=== PATIENT | female | born 1975 | race Asian ===

== ENCOUNTER 2025-08-02 11:45 | Inpatient (IN) | payer SELFPAY ==
[~2025-08-02] VITALS: Ht 160 cm; Wt 54.2 kg
[2025-08-02 12:09] LABS: MEAN PLATELET VOLUME 10.4 FL (7.4-10.4); RED CELL DISTRIBUTION WIDTH 13.8 % (11.5-14.5)
--- NOTE | 2025-08-02 12:14 | Physician Documentation ---
History of Present Illness ~ Chief Complaint: Chest Pain Stated Complaint: CP Time Seen by MD: 11:58 HPI 50-year-old female who presents to the emergency department because this morning she was on the treadmill for approximately 20 minutes and began experiencing chest tightness with shortness a breath without diaphoresis. This discomfort is consistent with prior history and episodes of exertion. Patient has seen cardiology in the past. Denies taking any medication she does not smoke. Most recent episode prior to today is with Thursday when she was not on a long hike and again experienced the same discomfort. Over the weekend the pain has subsided yet to reoccurring this morning. Prior to this the last significant episode was February when she was on a 10 day trip in . Presently she was without shortness of breath, no diaphoresis and pain is described as chest tightness. She is not on blood thinners. Last stress test 2022. 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 Medication Reconciliation Allergies: Coded Allergies: No Known Allergies (Unverified , 08/02/25) Review of Systems All Other Systems at this time: Reviewed and Negative Respiratory: Reports: see HPI Cardiovascular: Reports: see HPI Physical Exam Vital Signs: RN Vital Signs have been reviewed: Yes, Temperature: 97.6, Source: Oral, Pulse Oximetry: 98, Weight: 54.200 Oxygen Flow Rate: 0 General Appearance: alert, WD/WN, mild distress EENT: normal ENT inspection Neck: normal inspection Respiratory: lungs clear, normal breath sounds Chest: no accessory muscle use Cardiovascular: normal peripheral pulses, regular rate, rhythm Edema: 1+ Lower Extremity (R), 1+ Lower Extremity (L) Gastrointestinal: normal palpation Extremities: normal inspection Neurologic: oriented x4 Psychiatric: normal mood/affect Skin: normal color, warm/dry Progress Results/Orders Results/Orders Orders - THERESE CHEN Page Hospitalist (08/02/25 12:42) Fill Out Med Reconciliation (08/02/25 12:42) Heart Healthy Diet (08/02/25 Dinner) Completed Orders - THERESE CHEN Aspirin 81mg Chew Tablet (Aspirin 81mg C (08/02/25 12:30) Medications Received in ER Medications (Trade) Dose Ordered Sig/Dania Route PRN Reason Start Time Stop Time Status Last Admin Dose Admin (aspirin 81MG chew tablet) 81 mg ONCE ONCE PO 08/02/25 12:30 08/02/25 12:31 DC 08/02/25 12:40 81 MG Vital Signs 08/02/25 11:53 Temp 97.6 Pulse Ox 98 O2 Flow Rate 0 Laboratory Tests Test 08/02/25 11:58 White Blood Count 6.5 Red Blood Count 4.37 Hemoglobin 12.2 Hematocrit 37.4 Mean Corpuscular Volume 85.5 Mean Corpuscular Hemoglobin 28.0 Mean Corpuscular Hemoglobin Concent 32.7 L Red Cell Distribution Width 13.8 Platelet Count 168 Mean Platelet Volume 10.4 Neutrophils (%) (Auto) 66.6 Lymphocytes (%) (Auto) 24.7 Monocytes (%) (Auto) 6.9 Eosinophils (%) (Auto) 1.3 Basophils (%) (Auto) 0.5 Neutrophils # (Auto) 4.3 Lymphocytes # (Auto) 1.6 Monocytes # (Auto) 0.4 Eosinophils # (Auto) 0.1 Basophils # (Auto) 0.0 CBC Comment Sodium Level 138 Potassium Level 3.6 Chloride Level 104 Carbon Dioxide Level 29.6 Anion Gap 4 L Blood Urea Nitrogen 14 Creatinine 0.47 Estimated GFR/1.73 m2 > 90 BUN/Creatinine Ratio 29.8 H Glucose Level 89 Calcium Level 8.6 Troponin I High Sensitivity 4 Pro-B-Type Natriuretic Peptide 31 Albumin 3.6 Chemistry Comments Medical Decision Making Additional information obtaine: old records Findings 50-year-old female who presents to the emergency department with chest tightness associated with exertion. Heart score four. Initial EKG upon arrival is without ST elevation. Patient's direct bedded and pending labs, chest x-ray imaging and serial troponins. Initial troponin within normal limits. Patient is provided aspirin. We will hold on nitrites due to blood pressure being 102 systolic. Patient's discomfort and self resolving. Will consult for consideration to admit for chest pain with exertion. Chest x-ray imaging without obvious infiltrate effusion and/or pneumothoraces. Otherwise labs were all reassuring. Heart Score: 4 Differential Dx:Considerations: Include: angina, chest wall pain, esophageal reflux/spasm, myocardial infarction, pericarditis, pleuritis, pneumothorax, pulmonary embolus Departure Disposition: ADMITTED INPATIENT Admitted to Inpatient Unit: to hospitalist Impression: Primary Impression: Chest pain on exertion Referrals: NO PRIMARY CARE PROVIDER (PCP) Signature Scribe Signature: . Attestation: . THERESE CHEN PAC Aug 02, 2025 12:14
--- NOTE | 2025-08-02 12:27 | RADIOLOGY REPORT ---
EXAM: DI CHEST,SINGLE VIEW HISTORY: CP COMPARISON: None TECHNIQUE: Portable upright AP view of the chest was performed. FINDINGS: No pneumothorax, consolidative infiltrates, or pulmonary edema. The heart is not enlarged. IMPRESSION: No acute intrathoracic process.
[2025-08-02 12:30] LABS: CREATININE 0.47 MG/DL (0.40-0.90); PRO BRAIN NATRIURETIC PEPTIDE 31 PG/ML (0-125); TOTAL CARBON DIOXIDE 29.6 MMOL/L (24-32); eCRCL 118 ML/MIN; eGFR > 90 ML/MIN
--- NOTE | 2025-08-02 13:42 | ELECTROCARDIOGRAPH REPORT ---
[facility] Test Date: 2025-08-02 Test Time: 11:51:44 Pat Name: TONIO WARREN Department: EMERGENCY ROOM Room: [place] [address] Gender: F [employer] Laborer: brigida : 1975 Requested By: TERA FLORES Order Number: [id number] Reading MD: Dr. ALBANIA Bess Measurements Intervals [place] Rate: 81 P: 82 AK: 209 QRS: 80 QRSD: 84 T: 70 QT: 359 QTc: 417 Interpretive Statements Sinus rhythm Borderline prolonged AK interval LAE, consider biatrial enlargement RSR' in V1 or V2, probably normal variant Inferior infarct, acute (LCx) Borderline ST elevation, anterior leads Baseline wander in lead(s) V2,V5,V6 Electronically Signed On 08-03-2025 16:52:[address] ALBANIA Bess Please click the below link to view image of tracing.
[2025-08-02] MEDS ORDERED: magnesium sulf-water 2g/50mL 50 ML IV PRN (15:25)
[2025-08-02] MEDS ORDERED: ondansetron/PF 4mg/2ml inj IV PRN (15:25)
[2025-08-02] MEDS ORDERED: magnesium Cl slow-release 64mg tablet PO PRN (15:25)
[2025-08-02] MEDS ORDERED: magnesium hydroxide 30ml (MOM) UD suspension PO PRN (15:25)
[2025-08-02] MEDS ORDERED: magnesium sulf-water 4G/100mL 100 ML IV PRN (15:25)
[2025-08-02] MEDS ORDERED: potassium Cl 40MEQ/1/2NS 520ml 520 ML IV PRN (15:25)
[2025-08-02] MEDS ORDERED: ondansetron 4mg rapidly disintigrating tab PO PRN (15:25)
[2025-08-02] MEDS ORDERED: potassium Cl 20 mEq SR tablet PO PRN ×2 (15:25)
[2025-08-02] MEDS ORDERED: aspirin 81mg, enteric-coated 1 TAB TABLET.DR PO SCH (15:45)
[2025-08-02] MEDS: PERFLUTREN PROTEIN-A MICROSPHR (Optison) 0.22 MG/ML 3ML VIAL IV ONE (15:50)
--- NOTE | 2025-08-02 15:55 | HISTORY AND PHYSICAL-Residence ---
History & Physical Providers to CC Resident Creating Document: LEIGH ANN PLUMMER, RES ~ History of Present Illness Reason for Admit\Complaint: Chest pain History of Present Illness 50-year-old female with no significant past medical history presented to the ED with complaints of left-sided chest pain. The patient reports intermittent chest pain for the past few months, with a noticeable episode during hiking about 2 months ago. Three days ago, while performing treadmill exercise with minimal exertion, she developed gradual-onset left-sided stabbing chest pain, rated 6/10- now its 3/10, radiating to both jaws. Pain is more pronounced at night and with exertion. Associated symptoms include lightheadedness, headache, shortness of breath and fatigue. She denies palpitations, diaphoresis, syncope, nausea, vomiting, orthopnea, paroxysmal nocturnal dyspnea, leg swelling, recent fever, cough, or hemoptysis. Past history notable for long-standing joint pains, anxiety, and elevated LDL, but she is not on any medications. She had a normal Lexiscan stress test in 2022. No prior history of CAD, hypertension, diabetes, or family history of premature cardiac disease. 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 Past Surgical History Surgical History Comment No past surgical history Past Social History Social History Comment Primary care physician- - Aydin Lives Alone in Home, she is a traveller Occupation - Dietitian Nonsmoker, occasional alcohol user, denies any use of drugs and marijuana Family uivsljw-ywxhoo-ziugyvxpvo cancer, uncle-heart attacks ROS All Other Systems: Reviewed and Negative Constitutional: Reports: no symptoms reported Eyes: Reports: no symptoms reported ENT: Reports: no symptoms reported Respiratory: Reports: see HPI, SOB with exertion Cardiovascular: Reports: chest pain, lightheadedness Gastrointestinal: Reports: nausea Genitourinary: Reports: no symptoms reported Female Genitalia: Reports: no reported symptoms Neurological: Reports: no symptoms reported Musculoskeletal: Reports: no symptoms reported Integumentary: Reports: no symptoms reported Allergic/Immunologic: Reports: no symptoms reported Endocrine: Reports: no symptoms reported Psychiatric: Reports: anxiety Exam Vitals: Vital Signs Date Time Temp Pulse Resp B/P (MAP) Pulse Ox O2 Delivery O2 Flow Rate FiO2 08/02/25 14:22 100 Room Air* 0 21 08/02/25 14:15 89 17 107/69 (82) 08/02/25 11:53 97.6 General: Awake , alert, and oriented x4 HEENT: Atraumatic, normocephalic, EOMI, anicteric sclera ; pink conjunctiva Neck: Trachea midline. Supple, full range of motion, no JVD Cardiac: Regular rhythm, regular rate , 2/6 holosystolic murmur heard in the apex, left chest-mild tender on palpation Respiratory: Equal breath sounds bilaterally, no tachypnea, no wheezing ,rub or rales, Chest wall is symmetric and without deformity. Gastrointestinal: Abdomen symmetric, non-distended, soft, non-tender, normal bowel sounds x4 quadrant, normoactive, no hepatosplenomegaly Neurological: Mental status exam: alert and consciousness, orientation, memory, speech - Cranial nerve test: Cranial nerves 2-12 intact - Motor system: Normal Nutrition, normal tone, Power 5/5, no involuntary movements - Sensory system: Intact - Reflex testing: Biceps, triceps and knee reflexes 2+ - Cerebellar: Normal Skin: Warm and dry Extremities : No Edema, peripheral pulses felt, No deformities Psychiatric:Appropriate mood and affect,No hallucinations or suicidal ideation Diagnostic Data Last Recorded Lab Results: 08/02/25 1158 08/02/25 1158 Advance Care Planning Advanced Care plannin - 30 Minutes Additional Plan 50 years old female with past medical history of hyperlipidemia, anxiety, peripheral neuropathy, cavernous malformations of temporal lobe currently evaluated for chest pain Atypical chest Likely 2/2 chronic fatigue syndrome Differential-unstable angina Patient has symptoms of chest tightness, fatigue, pain worse with activity which is not going with typical angina symptoms Patient reports having 6/10 chest tightness during night at rest and sometimes during morning while patient on minimum activity Vitals-stable with 100% oxygen saturation maintaining at room air EKG shows-sinus rhythm, prolonged NV interval-237, regular RR interval Troponins-negative, pro BNP-31 Started aspirin 81 mg, atorvastatin 40 mg, sublingual nitroglycerin p.r.n., morphine p.r.n. In view of soft blood pressure readings we are currently not considering beta- catrachito Follow up with lipid panel, TSH, HGB A1c, Echocardiogram Continue monitoring the patient in telemetry Patient will be on NPO from midnight and possible Lexiscan in a.m. Hyperlipidemia Patient mentioned history of hyperlipidemia, per patient her last LDL was 160 Follow up with lipid panel, patient is currently on atorvastatin 40 mg p.o. daily first-degree AV block Patient mentioned having doctors with first-degree AV block, EKG-shows prolonged NV interval Continue monitoring patient in PCU with telemetry, avoid NV elongating drugs like beta catrachito, calcium channel catrachito Advance care: I spent a total of 16 minutes reviewing various resuscitative measures/ACP with patient. The patient decided to be full Code Status: Full DVT prophylaxis: SCDs Analgesia/Sedation: Morphine Nutrition: Heart healthy PT: Ordered Prognosis: Guarded Disposition: Continue monitoring the patient in PCU with telemetry, NPO after midnight-Shruthi in a.m. Leigh Ann Plummer PGY1-Internal Medicine Resident This Note has been reviewed by Pgy 2 and Pgy 3 Date of Service: Aug 02, 2025 Billing Provider: LAYO LANGLEY MD Common Visit Codes: 38925-EMQGEEM INP/OBS CARE (HIGH) Secondary Visit Codes: 86847-CRVQEUDF CARE PLAN 30 MINUTES LEIGH ANN PLUMMER, RES Aug 02, 2025 15:55 LAYO LANGLEY MD Aug 04, 2025 06:38
[2025-08-02 16:00] VITALS: BP 117/84; PULSE 83; RESP 14; TEMP 98.2; O2SAT 100
[2025-08-02 16:24] LABS: CHOL/HDL RATIO 3.8 (0.00-4.99); LDL CHOLESTEROL 149 MG/DL (50-100)
--- NOTE | 2025-08-02 17:31 | CARDIOLOGY REPORT ---
APPROVED REPORT EXAM: Comprehensive 2D, Doppler, and color-flow Echocardiogram. Patient Location: [facility] Blood Pressure: 107/69 mmHg Heart Rate: 78 bpm Indications Chest Pain Coronary Artery Disease SAUSAGE LINKER: Rob Mendoza MD ([place], [place]) No Previous ECHO at [facility] 2D Dimensions LA Diam 2.2 cm IVSd 0.7 (0.7-1.1cm) LVDd 3.4 cm PWd 0.7 (0.7-1.1cm) IVSs 0.8 (0.8-1.2cm) LVDs 2.0 (2.5-4.0cm) PWs 1.0 (0.8-1.2cm) LVOT Diameter 1.81 (1.8-2.4cm) LVEF(%) 73.7 (>50%) Ao Asc Diam. 2.14 cm IVC 16.25 mm FS (%) 41.7 % SV 35.9 ml CO 2.9 L/min M-Mode Dimensions Left Atrium(MM) 2.71 (2.5-4.0cm) Aortic Root 2.47 (2.2-3.7cm) Aortic Cusp Exc 1.76 (1.5-2.0cm) MV EPSS 0.8 (<0.5cm) Aortic Valve AoV Peak José. 143.4 cm/s AoV VTI 20.3 cm AO Peak GR. 8.2 mmHg AO Mean GR. 4 mmHg LVOT VTI 17.09 cm LVOT Peak José. 95.4 cm/s JOSE LUIS(VTI)/BSA 2.17 cm2/m2 JOSE LUIS (VTI) 2.17 cm2 AV DI 0.84 % Mitral Valve MV E Velocity 90.4 cm/s MV Peak Gr. 4 mmHg MV DECEL TIME 188 ms MV A Velocity 62.3 cm/s MV PHT 52 ms E/A Ratio 1.5 MVA (PHT) 4.23 cm2 MV VMax 100.2 cm/s TDI Lateral E' P. V 17.15 cm/s Medial E' P. V 10.03 cm/s E/Lateral E' 5.3 E/Medial E' 9.0 Tricuspid Valve TR P. Velocity 203 cm/s RAP ESTIMATE 10 mmHg TR Peak Gr. 16 mmHg RVSP 26 mmHg LEFT VENTRICLE Normal LV size and wall thickness. Overall systolic function is normal. LVEF is 70-75%. RIGHT VENTRICLE RV is normal size and function. ATRIA The left atrium size is normal. AORTIC VALVE Trileaflet AV appears mildly sclerotic without stenosis. No insufficiency. MITRAL VALVE Mild mitral annular calcification without stenosis. Trace regurgitation. TRICUSPID VALVE The tricuspid valve is normal in structure with trace regurgitation. PULMONIC VALVE Pulmonic valve is grossly normal in structure without insufficiency. GREAT VESSELS The aortic root is normal in size. The ascending aorta is normal in size. The IVC is normal in size and collapses >50% with inspiration. PERICARDIUM Normal pericardium. No effusion. Other Information Study Quality: Adequate Conclusion Normal LV size and wall thickness. Overall systolic function is normal. LVEF is 70-75%. RV is normal size and function. The left atrium size is normal. Trileaflet AV appears mildly sclerotic without stenosis. No insufficiency. Mild mitral annular calcification without stenosis. Trace regurgitation. The tricuspid valve is normal in structure with trace regurgitation. Normal pericardium. No effusion.
[2025-08-02 18:00] VITALS: BP_SYST 110; BP_SYST 111; BP_DIAS 70; BP_DIAS 73; PULSE 83; PULSE 84; RESP 17; TEMP 98.2; O2SAT 98
[2025-08-02 18:01] VITALS: RESP 15; O2SAT 98
[2025-08-02] MEDS ORDERED: aminophylline 250mg/10ml inj. IV PRN (18:20)
[2025-08-02] MEDS ORDERED: metoprolol tartrate 1mg/ml inj IV PRN (18:20)
[2025-08-02] MEDS ORDERED: regadenoson 0.4mg/5ml syringe IV PRN (18:20)
[2025-08-02] MEDS: docusate sod 100mg capsule PO SCH (19:12)
[2025-08-02] MEDS: K and/or MAG REPLACEMENT MC SCH (19:12)
[2025-08-02 20:00] VITALS: BP_SYST 111; BP_SYST 114; BP_SYST 115; BP_DIAS 64; BP_DIAS 70; BP_DIAS 79; PULSE 66; PULSE 77; PULSE 80; RESP 17; O2SAT 98
[2025-08-02 22:00] VITALS: BP 111/70; PULSE 74; RESP 14; TEMP 98.1; O2SAT 96
[2025-08-02] MEDS: mag hydrox/Alum hydrox/simeth 30ml oral suspension PO PRN (22:10)
[2025-08-03 02:00] VITALS: BP 111/64; PULSE 66; RESP 13; TEMP 97.6; O2SAT 99
[2025-08-03 06:00] VITALS: BP_SYST 114; BP_SYST 99; BP_DIAS 61; BP_DIAS 71; PULSE 68; PULSE 70; RESP 13; TEMP 97.3; TEMP 97.6; O2SAT 94; O2SAT 98
[2025-08-03 06:34] LABS: MEAN PLATELET VOLUME 10.2 FL (7.4-10.4); RED CELL DISTRIBUTION WIDTH 13.7 % (11.5-14.5)
[2025-08-03 07:14] LABS: CREATININE 0.50 MG/DL (0.40-0.90); TOTAL CARBON DIOXIDE 28.8 MMOL/L (24-32); eCRCL 111 ML/MIN; eGFR > 90 ML/MIN
[2025-08-03 08:00] VITALS: BP_SYST 103; BP_SYST 104; BP_DIAS 55; BP_DIAS 67; BP_DIAS 69; PULSE 73; PULSE 78; PULSE 80; RESP 13; O2SAT 98
[2025-08-03] MEDS ORDERED: metoprolol tartrate 1mg/ml inj IV PRN (08:10)
[2025-08-03] MEDS ORDERED: aminophylline 250mg/10ml inj. IV PRN (08:10)
[2025-08-03] MEDS ORDERED: regadenoson 0.4mg/5ml syringe IV PRN (08:10)
[2025-08-03] MEDS: aspirin 81mg, enteric-coated 1 TAB TABLET.DR PO SCH (09:07)
[2025-08-03 11:00] VITALS: BP 103/55; PULSE 73; RESP 13; TEMP 97.9; O2SAT 99
[2025-08-03] MEDS ORDERED: NO HOME MEDS (11:58)
--- NOTE | 2025-08-03 21:20 | DISCHARGE SUMMARY-Residence ---
Discharge Summary Providers to CC Resident Creating Document: LEIGH ANN PLUMMER, RES ~ Discharge Summary Admission Diagnosis: Chest pain Hospital Course DATE OF ADMISSION: 08/02/2025 DATE OF DISCHARGE: 08/03/25 Discharge Diagnosis\Comment: Atypical chest pain with unknown etiology Differentials include chronic fatigue syndrome Operations\Procedures: None Consultants: None Complications: None Condition on DC: Stable Discharge Summary: History of present illness 50-year-old female with no significant past medical history presented to the ED with complaints of left-sided chest pain. The patient reports intermittent chest pain for the past few months, with a noticeable episode during hiking about 2 months ago. Three days ago, while performing treadmill exercise with minimal ex ertion, she developed gradual-onset left-sided stabbing chest pain, rated 6/10- now its 3/10, radiating to both jaws. Pain is more pronounced at night and with exertion. Associated symptoms include lightheadedness, headache, shortness of breath and fatigue. Hospital course The patient was admitted with left-sided chest pain that was more pronounced after physical activity and during periods of fatigue. Initial evaluation revealed normal troponin, Pro-BNP, and TSH levels, with an LDL of 149 mg/dL; echocardiogram was normal. Due to suspicion of angina, the patient was started on atorvastatin and aspirin; however, the pain patternassociated with fatigue and exercise, along with a history of muscle aches and constant discomfortmade unstable angina unlikely. . The patient is now clinically stable and will be discharged with instructions to continue atorvastatin and aspirin, follow up with Cardiology at [facility]. The patients symptoms improved significantly and recovery occurred sooner than expected Awake , alert, and oriented x4 HEENT: Atraumatic, normocephalic, EOMI, anicteric sclera ; pink conjunctiva Neck: Trachea midline. Supple, full range of motion, no JVD Cardiac: Regular rhythm, regular rate with no murmurs all over the precordium. Respiratory: Equal breath sounds bilaterally, no tachypnea, no wheezing ,rub or rales, Chest wall is symmetric and without deformity. Gastrointestinal: Abdomen symmetric, non-distended, soft, non-tender, normal bowel sounds x4 quadrant, normoactive, no hepatosplenomegaly Musculoskeletal: No pedal edema Neurological: Mental status exam: alert and consciousness, orientation, memory, speech - Cranial nerve test: Cranial nerves 2-12 intact - Motor system: Normal Nutrition, normal tone, Power 5/5, no involuntary movements - Sensory system: Intact - Reflex testing: Biceps, triceps and knee reflexes 2+ - Cerebellar: Normal Skin: Warm and dry Extremities : No Edema, peripheral pulses felt, No deformities Psychiatric:Appropriate mood and affect,No hallucinations or suicidal ideation Imaging in hospital Chest [id number] Echocardiogram-left ventricular ejection fraction 75 % Vital Signs Date Time Temp Pulse Resp B/P (MAP) Pulse Ox O2 Delivery O2 Flow Rate FiO2 08/03/25 11:00 97.9 73 13 103/55 (71) 99 Room Air 08/02/25 14:22 0 21 Laboratory Tests Test 08/02/25 11:58 08/02/25 14:03 08/02/25 14:53 08/03/25 05:58 White Blood Count 6.5 X10'3 5.9 X10'3 Red Blood Count 4.37 X10'6 4.31 X10'6 Hemoglobin 12.2 g/dl 12.1 g/dl Hematocrit 37.4 % 36.8 % Mean Corpuscular Volume 85.5 FL 85.2 FL Mean Corpuscular Hemoglobin 28.0 PG 28.1 PG Mean Corpuscular Hemoglobin Concent 32.7 g/dL 32.9 g/dL Red Cell Distribution Width 13.8 % 13.7 % Platelet Count 168 X10'3 153 X10'3 Mean Platelet Volume 10.4 FL 10.2 FL Neutrophils (%) (Auto) 66.6 % 54.8 % Lymphocytes (%) (Auto) 24.7 % 33.9 % Monocytes (%) (Auto) 6.9 % 9.0 % Eosinophils (%) (Auto) 1.3 % 1.9 % Basophils (%) (Auto) 0.5 % 0.4 % Neutrophils # (Auto) 4.3 X10'3 3.2 X10'3 Lymphocytes # (Auto) 1.6 X10'3 2.0 X10'3 Monocytes # (Auto) 0.4 X10'3 0.5 X10'3 Eosinophils # (Auto) 0.1 X10'3 0.1 X10'3 Basophils # (Auto) 0.0 X10'3 0.0 X10'3 CBC Comment Sodium Level 138 MMOL/L 141 MMOL/L Potassium Level 3.6 MMOL/L 3.9 MMOL/L Chloride Level 104 MMOL/L 107 MMOL/L Carbon Dioxide Level 29.6 MMOL/L 28.8 MMOL/L Anion Gap 4 5 Blood Urea Nitrogen 14 MG/DL 13 MG/DL Creatinine 0.47 MG/DL 0.50 MG/DL Estimated GFR/1.73 m2 > 90 ML/MIN > 90 ML/MIN BUN/Creatinine Ratio 29.8 26.0 Glucose Level 89 MG/DL 83 MG/DL Hemoglobin A1c 5.4 % Calcium Level 8.6 MG/DL 8.4 MG/DL Troponin I High Sensitivity 4 ng/L 5 ng/L 5 ng/L Pro-B-Type Natriuretic Peptide 31 PG/ML Albumin 3.6 G/DL 3.3 G/DL Triglycerides Level 89 MG/DL Cholesterol Level 218 MG/DL LDL Cholesterol 149 MG/DL HDL Cholesterol 58 MG/DL Cholesterol/HDL Ratio 3.8 Thyroid Stimulating Hormone (TSH) 3.25 ulU/ml Chemistry Comments Troponin I High Sens Percent Delta 25 % 0 % Troponin I Hi Sens Absolute Change 1 ng/L 0 ng/L Total Bilirubin 0.3 MG/DL Aspartate Amino Transf (AST/SGOT) 15 U/L Alanine Aminotransferase (ALT/SGPT) 15 U/L Alkaline Phosphatase 35 IU/L Total Protein 6.3 G/DL Globulin 3.0 G/DL Albumin/Globulin Ratio 1.1 Discharge instructions Followup with PCP in a week, Follow up with actuarial internship at [facility] come to ED in case severe chest pain or shortness of breath develops *Problems/Diagnosis: (1) Chest pain on exertion Status: Acute Total Time Spent on D/C: Up to 30 Minutes Date of Service: Aug 03, 2025 Billing Provider: LAYO LANGLEY MD Common Visit Codes: 76930-TYR/OBS DISCH DAY >30min LEIGH ANN PLUMMER, RES Aug 03, 2025 21:18 LAYO LANGLEY MD Aug 04, 2025 06:39
== END 2025-08-03 12:40 | disposition home or self-care (01) | DRG 313 ==
LOC: ER 11:46 → ED HOLD 13:39 → PCU 3S 15:52
PROVIDERS: ADMIT Internal Medicine; ATTEND Internal Medicine
DX: R07.89 Other chest pain (principal); E78.5 Hyperlipidemia, unspecified; I44.0 Atrioventricular block, first degree
CPT/HCPCS: 36415; 71045; 80048; 80053; 80061; 83036; 83880; 84443; 84484; 85025; 87081; 93005; 93306; 99285; G0378; J7030